=== PATIENT | female | born 1980 | race Caucasian/White ===

== ENCOUNTER 2017-04-10 12:19 | Emergency (ER) | payer SELFPAY ==
[2017-04-10 13:13] LABS: Bacteria,Urine 1+ /HPF (Negative); Bilirubin,Urine NEG (Negative); Blood,Urine MOD (Negative); Ketones,Urine NEG (Negative); Leukocyte Esterase,Urine MOD (Negative); Mucus,Urine FEW /HPF; Nitrite,Urine NEG (Negative); Protein,Urine <15 mg/dL mg/dL (Negative); Urobilinogen,Urine < 2.0 mg/dL (<2.0)
[2017-04-10 13:25] LABS: Basophils % (Auto) 0.3 % (0.0-1.8); Hematocrit 38.4 % (30.3-42.9); Hemoglobin 12.7 gm/dl (10.1-14.3); Mean Corpuscular HGB Conc 33 % (30-34); Mean Corpuscular Hemoglobin 31 pg (28-32); Mean Corpuscular Volume 94 fl (79-97); Platelet Count 296 K/mm3 (140-440); Red Blood Count 4.11 M/mm3 (3.65-5.03); Red Cell Distribution Width 13.2 % (13.2-15.2); White Blood Count 11.7 K/mm3 (4.5-11.0)
[2017-04-10 13:46] LABS: Alanine Aminotransferase 17 units/L (7-56); Albumin/Globulin Ratio 1.1 %; Alkaline Phosphatase 94 units/L (35-129); Anion Gap 16 mmol/L; Blood Urea Nitrogen 9 mg/dL (7-17); Carbon Dioxide 27 mmol/L (22-30); Chloride 100.6 mmol/L (98-107); Glucose 129 mg/dL (65-100); Lipase 26 units/L (13-60); Potassium 3.9 mmol/L (3.6-5.0); Sodium 140 mmol/L (137-145); Total Protein 7.8 g/dL (6.3-8.2)
[2017-04-10] MEDS ORDERED: ULTRAM PO ONE (15:29)
[2017-04-10] MEDS ORDERED: TORADOL IM ONE (15:29)
[2017-04-10] MEDS ORDERED: MACROBID PO ONE (15:50)
--- NOTE | 2017-04-10 16:48 | Ultrasound Report ---
FINAL REPORT EXAM: US PELVIC COMPLETE HISTORY: rlq pain TECHNIQUE: Transabdominal and transvaginal sonography of the pelvis. Duplex Doppler performed. PRIORS: None. FINDINGS: The uterus measures 8.2 x 4.4 x 6.5 cm and appears grossly unremarkable. Small nabothian cyst in the lower uterine segment. The endometrial stripe is within normal limits and measures 6 mm in AP dimension. Both ovaries demonstrate follicular change measuring up to 1.2 cm bilaterally and are grossly unremarkable. The right ovary measures 4.4 x 1.8 x 2.5 cm. The left ovary measures 2.9 x 1.6 x 2.4 cm. Duplex Doppler shows appropriate blood flow present in the ovaries bilaterally. No adnexal masses or significant free peritoneal fluid. IMPRESSION: 1. Findings compatible with follicular change in the bilateral ovaries. 2. Otherwise, unremarkable.
--- NOTE | 2017-04-10 17:43 | Emergency Department Report ---
ED Abdominal Pain HPI - General Chief Complaint: Abdominal Pain Stated Complaint: ABD PAIN Time Seen by Provider: 04/10/17 15:10 Source: patient Mode of arrival: Ambulatory Limitations: Language Barrier - History of Present Illness Initial Comments: 36-year-old year-old female with a past medical history of fatty liver, right ovarian cyst, tubal ligation presents to the hospital complaints of right lower quadrant pain 4 days. Pain is intermittent and feels like contractions. Worse with palpation. Rated 6/10 intensity. No alleviating factors. Patient presents subjective fever at home without documented temperature. She denies nausea, vomiting, diarrhea, dysuria, or vaginal discharge. Severity scale (0 -10): 1 - Related Data Previous Rx's Medication Instructions Recorded Last Taken Type Ibuprofen [Motrin] 600 mg PO Q8H PRN #30 tablet 04/10/17 Unknown Rx Nitrofurantoin [place]/M-Cryst 100 mg PO Q12HR #14 capsule 04/10/17 Unknown Rx [Macrobid CAP] traMADol [Ultram 50 MG tab] 50 mg PO Q6HR PRN #20 tablet 04/10/17 Unknown Rx Allergies Allergy/AdvReac Type Severity Reaction Status Date / Time No Known Allergies Allergy Unverified 04/10/17 12:26 ED Review of Systems ROS: Stated complaint: ABD PAIN Other details as noted in HPI Comment: All other systems reviewed and negative Other: Constitutional: No fevers chills Eyes: No eye pain visual changes ENT: No ear pain or throat pain Neck: Denies pain Respiratory: Denies cough wheezing shortness of breath Cardiovascular: Denies chest pain, palpitations, syncope GI: As per HPI : Denies dysuria Musculoskeletal: Denies back pain Skin: Denies rash, lesions, erythema Neurologic: Denies headache, numbness, weakness Psychiatric: Denies suicidal ideation, hallucinations ED Past Medical Hx - Past Medical History Previous Medical History?: Yes Additional medical history: Fatty liver, Vaginal delivery x 4, Right oravrian cyst - Surgical History Past Surgical History?: Yes Additional Surgical History: Tubaligation - Social History Smoking Status: Never Smoker Substance Use Type: Non Opiate Pain - Medications Home Medications: Home Medications Medication Instructions Recorded Confirmed Last Taken Type Ibuprofen [Motrin] 600 mg PO Q8H PRN #30 tablet 04/10/17 Unknown Rx Nitrofurantoin [place]/M-Cryst 100 mg PO Q12HR #14 capsule 04/10/17 Unknown Rx [Macrobid CAP] traMADol [Ultram 50 MG tab] 50 mg PO Q6HR PRN #20 tablet 04/10/17 Unknown Rx ED Physical Exam - General Limitations: Language Barrier - Other Other exam information: General: No limitations, patient is alert in no acute distress Head exam: Atraumatic, normocephalic Eyes exam: Normal appearance, pupils equal reactive to light, extraocular movements intact ENT: Moist mucous membrane, normal oropharynx Neck exam: Normal inspection, full range of motion, no meningismus nontender Respiratory exam: Clear to auscultation bilateral, no wheezes, rales, crackles Cardiovascular: Normal rate and rhythm, normal heart sounds Abdomen: Soft, nondistended, right lower quadrant tenderness, with normal bowel sounds, no rebound, or guarding : No CMT or adnexal tenderness, mild white discharge Extremity: Full range of motion normal inspection no deformity Back: Normal Inspection, full range of motion, no tenderness Neurologic: Alert, oriented x3, cranial nerves intact, no motor or sensory deficit Psychiatric: normal affect, normal mood Skin: Warm, dry, intact ED Course Vital Signs 04/10/17 12:27 Temperature 98.2 F Pulse Rate 93 H Respiratory 20 Rate Blood Pressure 118/80 O2 Sat by Pulse 98 Oximetry - Reevaluation(s) Reevaluation #1: 04/10/17 17:40 Patient received tramadol, Toradol, and Macrobid in the ED with improvement in pain ED Medical Decision Making - Lab Data Result diagrams: 04/10/17 13:02 04/10/17 13:02 Lab Results 04/10/17 04/10/17 04/10/17 Range/Units 13:02 13:02 13:03 WBC 11.7 H (4.5-11.0) K/mm3 RBC 4.11 (3.65-5.03) M/mm3 Hgb 12.7 (10.1-14.3) gm/dl Hct 38.4 (30.3-42.9) % MCV 94 (79-97) fl MCH 31 (28-32) pg MCHC 33 (30-34) % RDW 13.2 (13.2-15.2) % Plt Count 296 (140-440) K/mm3 Lymph % (Auto) 13.7 (13.4-35.0) % [place] % (Auto) 5.8 (0.0-7.3) % Eos % (Auto) 1.0 (0.0-4.3) % Baso % (Auto) 0.3 (0.0-1.8) % Lymph # 1.6 (1.2-5.4) K/mm3 [place] # 0.7 (0.0-0.8) K/mm3 Eos # 0.1 (0.0-0.4) K/mm3 Baso # 0.0 (0.0-0.1) K/mm3 Seg Neutrophils % 79.2 H (40.0-70.0) % Seg Neutrophils # 9.3 H (1.8-7.7) K/mm3 Sodium 140 (137-145) mmol/L Potassium 3.9 (3.6-5.0) mmol/L Chloride 100.6 (98-107) mmol/L Carbon Dioxide 27 (22-30) mmol/L Anion Gap 16 mmol/L BUN 9 (7-17) mg/dL Creatinine 0.4 L (0.7-1.2) mg/dL Estimated GFR > 60 ml/min BUN/Creatinine Ratio 22.50 % Glucose 129 H (65-100) mg/dL Calcium 9.0 (8.4-10.2) mg/dL Total Bilirubin 0.20 (0.1-1.2) mg/dL AST 20 (5-40) units/L ALT 17 (7-56) units/L Alkaline Phosphatase 94 (35-129) units/L Total Protein 7.8 (6.3-8.2) g/dL Albumin 4.0 (3.9-5) g/dL Albumin/Globulin Ratio 1.1 % Lipase 26 (13-60) units/L Urine Color Yellow (Yellow) Urine Turbidity Clear (Clear) Urine pH 6.0 (5.0-7.0) Ur Specific [place] 1.017 (1.003-1.030) Urine Protein <15 mg/dl (Negative) mg/dL Urine Glucose (UA) Neg (Negative) mg/dL Urine Ketones Neg (Negative) mg/dL Urine Blood Mod (Negative) Urine Nitrite Neg (Negative) Ur Reducing Substances Not Reportable Urine Bilirubin Neg (Negative) Urine Ictotest Not Reportable Urine Urobilinogen < 2.0 (<2.0) mg/dL Ur Leukocyte Esterase Mod (Negative) Urine WBC (Auto) 23.0 H (0.0-6.0) /HPF Urine RBC (Auto) 5.0 (0.0-6.0) /HPF U Epithel Cells (Auto) 4.0 (0-13.0) /HPF Urine Bacteria (Auto) 1+ (Negative) /HPF Urine Mucus Few /HPF Urine HCG, Qual Negative (Negative) wet prep <20 clue cells, neg yeast/trich - Radiology Data Radiology results: report reviewed Transvaginal/pelvic ultrasound is compatible with follicular change in the bilateral ovaries of the results unremarkable. - Medical Decision Making Patient's pain is minimal and exam. Subjectively reported but no documented fever and no subcutaneous leukocytosis. Patient also lacking other GI symptoms. She will be treated with antibiotics for UTI given her leukocytosis. - Differential Diagnosis appendicitis, UTI, ovarian cyst, vaginitis, cervicitis, PID Critical Care Time: No Critical care attestation.: If time is entered above; I have spent that time in minutes in the direct care of this critically ill patient, excluding procedure time. ED Disposition Clinical Impression: RLQ abdominal pain, UTI (urinary tract infection) Disposition: TO HOME OR SELFCARE Is pt being admited?: No Does the pt Need Aspirin: No Condition: Stable Instructions: Abdominal Pain (ED), Urinary Tract Infection in Women (ED) Additional Instructions: Take the medication as prescribed. Follow-up with your doctor or the doctor provided. Return if symptoms worsen. Your pelvic ultrasound today did not show any significant abnormalities. Your gonorrhea and chlamydia tests are pending and take approximately 3-4 days result. You may obtain results in medical records with a photo ID. You may also obtain results through the follow-up doctor office via medical record request. [place] la medicacin segn lo prescrito. Seguimiento con mcfadden mdico o con el m dico. Regrese si los sntomas empeoran. Mcfadden ultrasonido plvico hoy no mostr ninguna anormalidad significativa. Candice pruebas de gonorrea y clamidia estn pendientes y jona aproximadamente 3-4 ann resultado. Usted puede obtener resultados en expedientes mdicos con nneka identificacin con foto. Irma puede obtener resultados a travs de la oficina del mdico de seguimiento a daya s de la solicitud de registro mdico. Prescriptions: Ibuprofen [Motrin] 600 mg PO Q8H PRN #30 tablet PRN Reason: Pain Nitrofurantoin [place]/M-Cryst [Macrobid CAP] 100 mg PO Q12HR #14 capsule traMADol [Ultram 50 MG tab] 50 mg PO Q6HR PRN #20 tablet PRN Reason: Pain Referrals: [facility] [Provider Group] - 3-5 Days Time of Disposition: 17:44 Print Language: GUAMANIAN
[2017-04-10 18:08] VITALS: BP 116/60
== END 2017-04-10 18:12 | disposition home or self-care (01) ==
LOC: ED 12:19
DX: N39.0 Urinary tract infection, site not specified (principal)
CPT/HCPCS: 36415; 76830; 76856; 80053; 81001; 81025; 83690; 85025; 87210; 87591; 96372; 99284; J1885

== ENCOUNTER 2019-05-26 12:58 | Emergency (ER) | payer SELFPAY ==
--- NOTE | 2019-05-26 13:09 | Event Note ---
Date: 05/26/19 Patient presents to ER with body aches, worse in shoulders, headache, throat pain, malaise. She finished a round of cipro on 05/06/19, after she was dx with e.coli, uti at an clinic on 04/26/19. No recent travel, no sick contacts. lmp: 05/15/19 pmhx: no pshx: Tubal ligation sochx: no tobacco, no alcohol, no illicits drugs. The initial assessment/diagnostic orders/clinical plan/treatment(s) is/are subject to change based on patient's health status,clinical progression and re- assessment by fellow clinical providers in the ED. Further treatment and workup at subsequent clinical providers discretion. Patient/guardian urged not to elope from the ED as their condition may be serious if not clinically assessed and managed.
[2019-05-26 13:11] VITALS: BP 124/69
--- NOTE | 2019-05-26 13:30 | Emergency Department Report ---
ED General Adult HPI - General Chief complaint: Pain General Stated complaint: BONE PAIN Source: patient Mode of arrival: Ambulatory Limitations: Language Barrier - History of Present Illness Initial comments: Patient presents to ER with body aches, worse in shoulders, headache, throat pain, malaise. She finished a round of cipro on 05/06/19, after she was dx with e.coli, uti at an [facility] on 04/26/19. No recent travel, no sick contacts. lmp: 05/15/19 pmhx: no pshx: Tubal ligation sochx: no tobacco, no alcohol, no illicits drugs. - Related Data Previous Rx's Medication Instructions Recorded Last Taken Type Ibuprofen [Motrin] 600 mg PO Q8H PRN #30 tablet 04/10/17 Unknown Rx Nitrofurantoin [place]/M-Cryst 100 mg PO Q12HR #14 capsule 04/10/17 Unknown Rx [Macrobid CAP] traMADol [Ultram 50 MG tab] 50 mg PO Q6HR PRN #20 tablet 04/10/17 Unknown Rx Nystas/Diphen/Xyl Visc/Mylanta 30 ml MM BID #7 ml 05/26/19 Unknown Rx [Magic Mouthwash] Allergies Allergy/AdvReac Type Severity Reaction Status Date / Time No Known Allergies Allergy Unverified 04/10/17 12:26 ED Review of Systems ROS: Stated complaint: BONE PAIN Other details as noted in HPI Comment: All other systems reviewed and negative ENT: throat pain Cardiovascular: chest pain Gastrointestinal: denies: abdominal pain, nausea, vomiting ED Past Medical Hx - Past Medical History Previous Medical History?: Yes Additional medical history: Fatty liver, Vaginal delivery x 4, Right oravrian cyst - Surgical History Past Surgical History?: Yes Additional Surgical History: Tubal ligation - Social History Smoking Status: Never Smoker Substance Use Type: None - Medications Home Medications: Home Medications Medication Instructions Recorded Confirmed Last Taken Type Ibuprofen [Motrin] 600 mg PO Q8H PRN #30 tablet 04/10/17 Unknown Rx Nitrofurantoin [place]/M-Cryst 100 mg PO Q12HR #14 capsule 04/10/17 Unknown Rx [Macrobid CAP] traMADol [Ultram 50 MG tab] 50 mg PO Q6HR PRN #20 tablet 04/10/17 Unknown Rx Nystas/Diphen/Xyl Visc/Mylanta 30 ml MM BID #7 ml 05/26/19 Unknown Rx [Magic Mouthwash] ED Physical Exam - General Limitations: Language Barrier - Head Head exam: Present: atraumatic, normocephalic - Eye Eye exam: Present: normal appearance - ENT ENT exam: Present: other (thrush buccal and pharyngeal mucosa) - Neck Neck exam: Present: normal inspection - Respiratory Respiratory exam: Present: normal lung sounds bilaterally - Cardiovascular Cardiovascular Exam: Present: regular rate, normal rhythm - GI/Abdominal GI/Abdominal exam: Present: soft ED Course Vital Signs 05/26/19 13:06 Temperature 97.8 F Pulse Rate 79 Respiratory 18 Rate Blood Pressure 124/69 O2 Sat by Pulse 97 Oximetry Critical care attestation.: If time is entered above; I have spent that time in minutes in the direct care of this critically ill patient, excluding procedure time. ED Disposition Clinical Impression: Viral illness, Viral pharyngitis, Oral thrush Disposition: DC- TO HOME OR SELFCARE Is pt being admited?: No Does the pt Need Aspirin: No Condition: Stable Instructions: Oral Candidiasis (ED) Prescriptions: Nystas/Diphen/Xyl Visc/Mylanta [Magic Mouthwash] 30 ml MM BID #7 ml Referrals: SHADI MONTESINOS MD [Primary Care Provider] - 3-5 Days
== END 2019-05-26 13:40 | disposition home or self-care (01) ==
LOC: ED 12:58
DX: J02.8 Acute pharyngitis due to other specified organisms (principal); B34.9 Viral infection, unspecified; B37.0 Candidal stomatitis
CPT/HCPCS: 99282